=== PATIENT | male | born 1960 | race Caucasian/White ===

== ENCOUNTER 2021-10-31 07:14 | Day surgery (SDC) | payer BC ==
[~2021-10-31] VITALS: Ht 175.3 cm; Wt 86.2 kg
[~2021-10-31 07:14] MED LIST: CYCL10 PO; FISH OIL 1,2001 EAC7 PO; GABA100 PO; META800 PO; OXYC1TAB11; Prednisone20 MG PO
--- NOTE | 2021-10-31 08:06 | NUR ---
10/31/21 0806 Sylvie Yan ATTEMPT X1 IN R AC - NO FLASH ATTEMPT X1 R HAND - NO FLASH
== END 2021-10-31 09:20 | disposition home or self-care (01) ==
LOC: ORSCSDS 07:14
PROVIDERS: Surgery
PROC: 0DJD8ZZ Inspection of Lower Intestinal Tract, Via Natural or Artificial Opening Endoscopic (ICD-10-PCS; principal; 2021-10-31 08:30)
DX: Z12.11 Encounter for screening for malignant neoplasm of colon (principal); F41.9 Anxiety disorder, unspecified; Z86.010 Personal history of colon polyps
CPT/HCPCS: J2704; J7120